=== PATIENT | male | born 1945 ===

== ENCOUNTER 2024-06-21 11:51 | Emergency (ER) | payer MEDICARE, OTHER, SELFPAY ==
[2024-06-21 11:58] VITALS: BP 129/84
[2024-06-21 12:01] VITALS: BP 129/84
[2024-06-21 12:44] VITALS: BMI 33.2
[2024-06-21 13:00] VITALS: BP 147/82
--- NOTE | 2024-06-21 13:03 | ED.GENMED ---
History of Present Illness
General
Chief Complaint: Male Genito-Urinary Symptoms
Source: patient
Time Seen by Provider: 06/21/24 12:09
History of Present Illness
History of Present Illness:
78yoM with a history of atrial fibrillation on Eliquis, coronary artery disease, hypertension, and hyperlipidemia presenting for evaluation of hematuria. Patient urinated this morning and noticed that the urine was red-tinged. He was able to go to
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 The color seemed to gradually improve throughout the urine stream. He denies any clots. He denies any dysuria or urinary retention. No abdominal
pain, flank pain, vomiting, fevers. Of note, patient had a nosebleed overnight while self-resolved.
Past History
Past History
ED Past Medical History: CAD, HTN, Hypercholesterolemia and NIDDM
ED Past Surgical History: Cardiac and Orthopedic
Social History
Tobacco: Non-smoker
Alcohol: Former
Drug: None
Personal: Single
Living: with family
Phy Exam
General Physical Exam
General Presentation: well appearing and no apparent distress
General age: appears stated age
General Skin: warm and dry
General Habitus: normal
General Mental: alert
General Hydration: appears well hydrated
ENT Exam
ENT Exam: normocephalic
Pulmonary Exam
Pulmonary Exam: no respiratory distress
Gastrointestinal Exam
Gastrointestinal Exam: non tender, soft and non distended
Genitourinary Exam Male
Exam Male: other (Urine is dark pink color. No clots visualized. )
Neurological Exam
Neurological Exam: alert
[place] Coma Scale
Eye Opening: Spontaneous
Verbal Response: Oriented
Motor Response: Obeys Commands
GCS Total Score: 15
Skin Exam
Skin Exam: normal color and warm/dry
Psychiatric Exam
Psychiatric Exam: normal mood/affect
Course
Orders/Labs/Results
Orders:
Orders
06/21/24 12:33
CT Abd/pelvis W Iv Cont Urgent
Comment:
Reason For Exam: Hematuria
06/21/24 13:03
Complete Blood Count/With Diff Urgent
Comprehensive Metabolic Panel Urgent
PTT Urgent
Prothrombin Time Urgent
06/21/24 13:13
Urinalysis Reflex To Culture Urgent
Date Specimen was Collected: 06/21/24
Time Specimen was Collected: 13:12
Urine Microscopic Reflex Cult Urgent
Urine Culture Urgent
CURRY Source: U
Specimen Description:
Date Specimen was Collected: 06/21/24
Time Specimen was Collected: 13:12
Abnormal Lab Results
06/21/24 06/21/24
13:03 13:13
RDW 15.0 H %
(11.5-14.5)
Absolute Monos (auto) 1.0 H 10^3/uL
(0.1-0.6)
Monocytes % 11.8 H %
(1.7-9.3)
PT 18.2 H Sec
(11.4-14.6)
APTT 40.8 H Sec
(23.4-35.0)
BUN 28 H mg/dl
(9-20)
Glucose 104 H mg/dl
(70-99)
Calcium 10.5 H mg/dl
(8.4-10.2)
Total Bilirubin 2.7 H mg/dl
(0.2-1.3)
Ur Occult Blood Reflex 4+ A
(Negative)
Urine Bilirubin 1+ A
(Negative)
Leukocyte Esterase Rfl Trace A
(Negative)
Urine RBC >100 A /HPF
(0-2)
Urine Albumin (Reflex) 1+ A
(Neg - Trace)
06/21/24 13:03
06/21/24 13:03
Vital Signs
Initial and Last Documented VS:
Initial Vital Signs
Temp Pulse BP
98.6 F 70 129/84
06/21/24 11:58 06/21/24 11:58 06/21/24 11:58
Last Documented Vital Signs
Temp Pulse Resp BP Pulse Ox
98.6 F 57 20 153/85 98
06/21/24 12:01 06/21/24 17:00 06/21/24 17:00 06/21/24 17:00 06/21/24 17:00
MDM/Problems Addressed
Differential Diagnosis Includes:
78yoM here with painless hematuria that began this morning. No associated urinary retention, abdominal pain, flank pain, fevers, vomiting. Currently on Eliquis for afib. VSS. He is well appearing in no distress. Urine sample is dark pink in color.
Exam is reassuring. Differential diagnosis includes but is not limited to: coagulopathy 2/2 Eliquis, BPH, UTI, malignancy, less likely kidney stone as he has no pain
Initial ED plan: Check CBC, CMP, coags, UA, and CT abdomen.
*Critical Care Note
Total Time (30-74mins, 75-104mins- exclusive of procedures): Not Applicable
Update Note
Update Note:
CT shows a 3.7mm distal L ureter. UA with 4+ blood without any overt signs of infection. Renal function stable. Patient remains pain free on reassessment. He is stable for discharge. Supportive care discussed including hydration, urine straining,
and Flomax. Advised f/u with urology. Strict ED return precautions discussed including severe pain and urinary retention. He expressed understanding and is agreeable to plan. He was discharged in stable condition.
ED Attending Note
-
Portions of this chart may have been created with voice recognition software.� Occasional wrong word or��sound alike� substitutions may have occurred due to the inherent limitations of voice recognition software.
Discharge Plan
Departure
Patient Disposition: Home (Routine Discharge)
Date of Disposition: 06/21/24
Time of Disposition: 16:58
Patient with high blood pressure during this ER visit?: No
Discharge Problem:
Calculus of distal left ureter, Gross hematuria
Instructions: Kidney stones in adults
Prescriptions:
New
tamsulosin [Flomax] 0.4 mg capsule
0.4 mg PO HS Qty: 7 0RF
No Action
losartan 50 MG tablet
100 mg PO DAILY
atorvastatin 40 MG tablet
40 mg PO QPM
benzonatate 200 MG capsule
200 mg PO BID
amlodipine 5 MG tablet
5 mg PO DAILY
metoprolol succinate [Toprol XL] 25 MG tablet extended release 24 hr
25 mg PO DAILY
escitalopram oxalate 10 MG tablet
10 mg PO DAILY
omega-3 acid ethyl esters 1 GM capsule
2 tablets PO BID
nitroglycerin 0.4 MG tablet, sublingual
0.4 mg sublingual [id number] PRN (Reason: chest pain)
clopidogrel 75 MG tablet
75 mg PO DAILY Qty: 90 3RF
apixaban [Eliquis] 5 MG tablet
5 mg PO BID Qty: 60 1RF
furosemide [Lasix] 20 MG tablet
20 mg PO DAILY Qty: 30 0RF
lorazepam [Ativan] 0.5 mg tablet
0.5 mg PO HS PRN (Reason: Sleep) Qty: 7 0RF
zolpidem [Ambien] 5 mg tablet
5 mg PO HS PRN (Reason: insomnia) Qty: 7 0RF
Referrals:
Sonido Gooden MD [Family Provider] -
Colten Daigle MD [Active] -
Activity Restrictions/Additional Instructions:
Strain your urine and take Flomax until stone has passed.
Drink plenty of fluids and take Tylenol as needed for pain.
Please follow-up with urology. Return to the ER with any worsening symptoms, severe pain, fevers, or inability to urinate.
Interventions
Interventions:
*Risk Screen - Suicide Last Done: 06/21/24 12:01
*General Assessment Last Done: 06/21/24 12:00
*Neglect/Abuse Screening Last Done: 06/21/24 12:01
ED- Fall Risk Assessment Last Done: 06/21/24 17:41
*ED COVID-19 Vaccine History Last Done: 06/21/24 12:01
*Nursing Disposition Last Done: 06/21/24 17:41
ED-Male Genitourinary Assessment Last Done: 06/21/24 12:00
Discharge Date and Time
Discharge Date/Time: 06/21/24 17:35
Print Language: YAKUT
[2024-06-21 13:22] LABS: % Basophils 0.7 % (0-2); % Eosinophils 0.9 % (0-6); % Immature Granulocytes 0.2 % (0-0.5); % Lymphocytes 24.7 % (20.5-51.1); % Monocytes 11.8 % (1.7-9.3); % Neutrophils 61.7 % (42.2-75.2); Absolute Basophils 0.1 10^3/uL (0-0.2); Absolute Eosinophils 0.1 10^3/uL (0-0.7); Absolute Lymphocytes 2.1 10^3/uL (1.2-3.4); Absolute Neutrophils 5.2 10^3/uL (1.4-6.5); Hematocrit 44.1 % (39.0-52.0); Hemoglobin 14.7 g/dL (13.0-18.0); Mean Corp Hgb Conc. 33.3 g/dL (33.0-37.0); Mean Corpuscular Hgb 27.2 pg (27.0-31.0); Mean Corpuscular Volume 81.7 fL (80.0-94.0); Mean Platelet Volume 9.1 fL (7.4-10.4); Nucleated Red Blood Cells % 0 % (-); Platelet Count 212 10^3/uL (130-400); White Blood Cell Count 8.5 10^3/uL (4.8-10.8)
[2024-06-21 13:28] LABS: INR 1.48; PT 18.2 Sec (11.4-14.6)
[2024-06-21 13:29] LABS: APTT 40.8 Sec (23.4-35.0)
[2024-06-21 13:33] LABS: ALT (SGPT) 26 U/L (0-50); AST (SGOT) 29 U/L (17-59); Albumin 4.7 g/dl (3.5-5.0); Alkaline Phosphatase 87 U/L (38-126); Blood Urea Nitrogen 28 mg/dl (9-20); Calcium 10.5 mg/dl (8.4-10.2); Carbon Dioxide 27 mmol/L (22-30); Chloride 103 mmol/L (98-107); Estimated Creatinine Clearance 79 ml/min; Glucose 104 mg/dl (70-99); Potassium 4.4 mmol/L (3.5-5.1); Sodium 140 mmol/L (135-145); Total Bilirubin 2.7 mg/dl (0.2-1.3); Total Protein 7.4 g/dl (6.3-8.2); eGFR > 60.00
[2024-06-21 13:36] LABS: Urine Albumin 1+ (Neg - Trace); Urine Bilirubin 1+ (Negative); Urine Character Slightly Cloudy (Clear); Urine Color Amber; Urine Glucose Negative (Negative); Urine Ketone Negative (Negative); Urine Leukocyte Trace (Negative); Urine Nitrite Negative (Negative); Urine Occult Blood 4+ (Negative); Urine Urobilinogen Negative (Neg - 1+)
[2024-06-21 14:13] LABS: Urine Red Blood Cell >100 /HPF (0-2)
[2024-06-21 17:00] VITALS: BP 153/85
== END 2024-06-21 17:35 | disposition home or self-care (01) ==
LOC: EMR 11:51
PROVIDERS: Physician Assistant; EMERGENCY PHYSICIAN Emergency Medicine; FAMILY PHYSICIAN Family Medicine
DX: N20.1 Calculus of ureter (principal); R31.0 Gross hematuria; I48.91 Unspecified atrial fibrillation; I25.10 Atherosclerotic heart disease of native coronary artery without angina pectoris; I10 Essential (primary) hypertension; E78.00 Pure hypercholesterolemia, unspecified; E11.9 Type 2 diabetes mellitus without complications; Z79.01 Long term (current) use of anticoagulants
CPT/HCPCS: 99284; 74177; 80053; 81003; 81015; 85025; 85610; 85730; 87086; Q9967

== ENCOUNTER 2024-08-28 09:50 | Emergency (ER) | payer MEDICARE, OTHER, SELFPAY ==
[2024-08-28 10:14] VITALS: BP 149/88
--- NOTE | 2024-08-28 11:07 | ED.GENMED ---
History of Present Illness
General
Chief Complaint: Cold/Flu/URI Symptoms
Source: patient
Exam Limitations: none
Time Seen by Provider: 08/28/24 10:59
Nursing documentation reviewed up to this point in time: agreed with
History of Present Illness
History of Present Illness:
This is a 78-year-old male with past medical history of A-fib on Eliquis, coronary artery disease, hypertension, hyperlipidemia, sleep apnea, presents emergency department today with concerns of shortness of breath and cough. He has had the
symptoms for the past week. He reports that he the symptoms have caused him not to sleep well at night. He states that he has had runny nose as well and he feels as though he has sinus congestion. He denies chest pain. He notes intermittent
wheezing. He has no history of COPD or asthma. He denies any recent sick contacts. He denies any syncopal episodes. He denies any increasing swelling in his legs or any recent weight gain. Patient did get the flu shot this past year. Patient
denies any trouble swallowing. Patient denies any abdominal pain, nausea, vomiting, diarrhea. Patient's sql tech is Dr. Hand with [facility].
Past History
Past History
ED Past Medical History: CAD, HTN, Hypercholesterolemia and NIDDM
ED Past Surgical History: Cardiac and Orthopedic
Social History
Tobacco: Non-smoker
Alcohol: Former
Drug: None
Personal: Single
Living: with family
Review of Systems
Review of Systems
All Other Systems: ROS reviewed and negative except as documented in HPI and ROS
Phy Exam
Physical Exam
Physical Exam:
General: Patient is well appearing and in no acute distress; non-toxic
Skin: Warm and dry, no rashes or lesions
Head: Normocephalic, atraumatic
Eyes: Sclera non-icteric. EOMs intact.
Throat: No pharyngeal erythema, uvula midline
Cardiac: Regular rate and rhythm, systolic murmur noted
Peripheral Vascular: No lower extremity swelling or edema
Pulm: Normal respiratory effort, occasional wheezing
Neuro: CN II-XII intact, no focal neurologic deficits.
Psychiatric: Appropriate mood and affect.
Course
Orders/Labs/Results
Orders:
Orders
08/28/24 11:24
IV Insert/Care/Rem.- Treatment PRN
08/28/24 11:25
Electrocardiogram (*1) Urgent
Reason for Study: Shortness of Breath
EKG- Treatment ONCE
CR Chest - 2 Views Urgent
Comment:
Reason For Exam: shortness of breath
08/28/24 12:06
COVID-19 Antigen Urgent
Source: Nasal Swab
Complete Blood Count/With Diff Urgent
Comprehensive Metabolic Panel Urgent
NT-proBNP Urgent
Influenza A+B Rapid Molecular Urgent
CURRY Source: Nasal Swab
Specimen Description:
Respiratory Syncytial Virus Urgent
CURRY Source: Nasal Swab
Specimen Description:
Date Specimen was Collected: 08/28/24
Time Specimen was Collected: 11:27
Abnormal Lab Results
08/28/24
12:06
MCV 79.5 L fL
(80.0-94.0)
RDW 14.9 H %
(11.5-14.5)
BUN 21 H mg/dl
(9-20)
Glucose 117 H mg/dl
(70-99)
Calcium 10.3 H mg/dl
(8.4-10.2)
Total Bilirubin 1.6 H mg/dl
(0.2-1.3)
SARS-CoV-2 Antigen Positive A
(Negative)
08/28/24 12:06
08/28/24 12:06
Vital Signs
Initial and Last Documented VS:
Initial Vital Signs
Temp Pulse Resp BP Pulse Ox
98.8 F 72 18 149/88 94
08/28/24 10:14 08/28/24 10:14 08/28/24 10:14 08/28/24 10:14 08/28/24 10:14
Last Documented Vital Signs
Temp Pulse Resp BP Pulse Ox
98.8 F 94 18 140/80 95
08/28/24 10:14 08/28/24 13:21 08/28/24 13:21 08/28/24 13:21 08/28/24 13:21
MDM/Problems Addressed
Differential Diagnosis Includes:
Differentials include pneumonia, influenza, COVID-19, upper respiratory, heart failure
MDM/Problems Addressed:
This is a 78-year-old male with past medical history of A-fib on Eliquis, sleep apnea, coronary artery disease presents emergency department today with concerns of increased cough and mucus, generalized fatigue trouble sleeping. Patient reports
that the symptoms have been going on for the past few days. On exam, he is not hypoxic he is afebrile, well-appearing in no acute distress. His lungs are clear to auscultation bilaterally. He has no pharyngeal edema or erythema. He has no
abdominal pain, no nausea or vomiting he tested positive for COVID-19. His x-ray shows no concurrent pneumonia. His EKG did show atrial fibrillation rate of 65 however patient is rate controlled on medication follows with cardiology and is on
Eliquis and he denies palpitations or lightheadedness at this time. Patient stable for discharge, discussed rest and staying well hydrated. Patient stable for discharge. Discussed return precautions.
Chronic conditions affecting care:
A-fib, coronary artery disease, hypertension
*Pulse Oximetry
Patient hypoxic: no
*EKG
Interpreted by ED Provider?: Yes
EKG Intrepretation Date: 08/28/24
Interpretation: abnormal
Comparison EKG: no changes
Heart Rate: 65
Rate: normal
Rhythm: a-fib
[place]: normal axis
Interval: normal interval
QRS Pattern: normal QRS
*Critical Care Note
Total Time (30-74mins, 75-104mins- exclusive of procedures): Not Applicable
Data Reviewed
Review of Other/Old Records Reveals: Records (Reviewed previous ER section documentation for 06/21/2024 patient seen for calculus of distal ureter, reviewed ER physician documentation from 01/08/2023 patient seen for worsening orthopnea unremarkable)
Source: patient and records
ED Attending Note
-
Portions of this chart may have been created with voice recognition software.� Occasional wrong word or��sound alike� substitutions may have occurred due to the inherent limitations of voice recognition software.
Discharge Plan
Departure
Patient Disposition: Home (Routine Discharge)
Date of Disposition: 08/28/24
Time of Disposition: 13:10
Patient with high blood pressure during this ER visit?: Yes
Condition: Good
Discharge Problem:
COVID-19
Instructions: COVID-19 - ED discharge instructions, BLOOD PRESSURE
Prescriptions:
No Action
losartan 50 MG tablet
100 mg PO DAILY
atorvastatin 40 MG tablet
40 mg PO QPM
benzonatate 200 MG capsule
200 mg PO BID
amlodipine 5 MG tablet
5 mg PO DAILY
metoprolol succinate [Toprol XL] 25 MG tablet extended release 24 hr
25 mg PO DAILY
escitalopram oxalate 10 MG tablet
10 mg PO DAILY
omega-3 acid ethyl esters 1 GM capsule
2 tablets PO BID
nitroglycerin 0.4 MG tablet, sublingual
0.4 mg sublingual [id number] PRN (Reason: chest pain)
clopidogrel 75 MG tablet
75 mg PO DAILY Qty: 90 3RF
apixaban [Eliquis] 5 MG tablet
5 mg PO BID Qty: 60 1RF
furosemide [Lasix] 20 MG tablet
20 mg PO DAILY Qty: 30 0RF
lorazepam [Ativan] 0.5 mg tablet
0.5 mg PO HS PRN (Reason: Sleep) Qty: 7 0RF
zolpidem [Ambien] 5 mg tablet
5 mg PO HS PRN (Reason: insomnia) Qty: 7 0RF
tamsulosin [Flomax] 0.4 mg capsule
0.4 mg PO HS Qty: 7 0RF
Referrals:
Sonido Gooden MD [Family Provider] -
Activity Restrictions/Additional Instructions:
Today you tested positive for COVID-19. Your chest x-ray did not show any evidence of associated pneumonia.
Please follow-up with your primary care provider in 1 to 2 weeks.
PLEASE RETURN TO EMERGENCY DEPARTMENT SHOULD YOU DEVELOP CHEST PAIN, ACUTE WORSENING OF YOUR SYMPTOMS, SHORTNESS OF BREATH, INTRACTABLE NAUSEA OR VOMITING, FEVERS, WEAKNESS IN ONE-SIDED BODY VERSUS OTHER, FAINTING SPELLS, COUGHING UP BLOOD, REDNESS
OR SWELLING IN YOUR LOWER EXTREMITIES, OR ANY OTHER SIGNS OR SYMPTOMS WORRISOME TO YOU.
Interventions
Interventions:
*Risk Screen - Suicide Last Done: 08/28/24 10:14
*General Assessment Last Done: 08/28/24 10:14
*Neglect/Abuse Screening Last Done: 08/28/24 10:14
ED- Fall Risk Assessment Last Done: 08/28/24 12:23
*Nursing Disposition Last Done: 08/28/24 13:25
ED- Pulmonary Assessment Last Done: 08/28/24 12:23
Discharge Date and Time
Discharge Date/Time: 08/28/24 13:26
Print Language: DANISH
[2024-08-28 12:05] VITALS: BMI 32.9
[2024-08-28 12:19] LABS: % Basophils 0.6 % (0-2); % Eosinophils 1.2 % (0-6); % Immature Granulocytes 0.1 % (0-0.5); % Monocytes 8.1 % (1.7-9.3); Absolute Eosinophils 0.1 10^3/uL (0-0.7); Absolute Lymphocytes 1.6 10^3/uL (1.2-3.4); Absolute Monocytes 0.6 10^3/uL (0.1-0.6); Absolute Neutrophils 4.5 10^3/uL (1.4-6.5); Hematocrit 40.8 % (39.0-52.0); Hemoglobin 13.9 g/dL (13.0-18.0); Mean Corp Hgb Conc. 34.1 g/dL (33.0-37.0); Mean Corpuscular Hgb 27.1 pg (27.0-31.0); Mean Corpuscular Volume 79.5 fL (80.0-94.0); Nucleated Red Blood Cells % 0 % (-); Platelet Count 181 10^3/uL (130-400); Red Blood Cell Count 5.13 10^6/uL (4.70-6.10); Red Cell Dist. Width 14.9 % (11.5-14.5); White Blood Cell Count 6.8 10^3/uL (4.8-10.8)
[2024-08-28 12:29] LABS: COVID-19 Antigen Positive (Negative)
[2024-08-28 12:33] LABS: ALT (SGPT) 25 U/L (0-50); AST (SGOT) 30 U/L (17-59); Albumin 4.4 g/dl (3.5-5.0); Alkaline Phosphatase 92 U/L (38-126); Blood Urea Nitrogen 21 mg/dl (9-20); Calcium 10.3 mg/dl (8.4-10.2); Carbon Dioxide 27 mmol/L (22-30); Chloride 101 mmol/L (98-107); Estimated Creatinine Clearance 108 ml/min; Glucose 117 mg/dl (70-99); Potassium 3.8 mmol/L (3.5-5.1); Sodium 137 mmol/L (135-145); Total Bilirubin 1.6 mg/dl (0.2-1.3); Total Protein 7.2 g/dl (6.3-8.2); eGFR > 60.00
[2024-08-28 12:41] LABS: NT-proBNP 856 pg/ml
[2024-08-28 13:21] VITALS: BP 140/80
== END 2024-08-28 13:26 | disposition home or self-care (01) ==
LOC: EMR 09:50
PROVIDERS: Physician Assistant; EMERGENCY PHYSICIAN Emergency Medicine; FAMILY PHYSICIAN Family Medicine
DX: U07.1 COVID-19 (principal); I25.10 Atherosclerotic heart disease of native coronary artery without angina pectoris; I48.91 Unspecified atrial fibrillation; I10 Essential (primary) hypertension; E78.00 Pure hypercholesterolemia, unspecified; G47.30 Sleep apnea, unspecified; E11.9 Type 2 diabetes mellitus without complications; Z79.01 Long term (current) use of anticoagulants
CPT/HCPCS: 99285; 71046; 80053; 83880; 85025; 87502; 87807; 87811; 93005

== ENCOUNTER 2025-06-26 14:07 | Inpatient (IN) | payer MEDICARE, OTHER, SELFPAY ==
[2025-06-25 20:28] VITALS: BP 160/89
[2025-06-25 20:42] VITALS: BP 157/92
[2025-06-25 20:49] VITALS: BMI 31.1
[2025-06-25 21:00] VITALS: BP 151/86
[2025-06-25 21:13] LABS: Hematocrit 34.7 % (39.0-52.0); Hemoglobin 10.2 g/dL (13.0-18.0); Mean Corp Hgb Conc. 29.4 g/dL (33.0-37.0); Mean Corpuscular Volume 72.0 fL (80.0-94.0); Nucleated Red Blood Cells % 0 % (-); Platelet Count 200 10^3/uL (130-400); Red Cell Dist. Width 19.5 % (11.5-14.5)
[2025-06-25 21:38] LABS: ALT (SGPT) 30 U/L (0-50); AST (SGOT) 23 U/L (17-59); Albumin 4.1 g/dl (3.5-5.0); Alkaline Phosphatase 75 U/L (38-126); Blood Urea Nitrogen 20 mg/dl (9-20); Calcium 10.4 mg/dl (8.4-10.2); Carbon Dioxide 28 mmol/L (22-30); Chloride 105 mmol/L (98-107); Estimated Creatinine Clearance 89 ml/min; Glucose 101 mg/dl (70-99); Potassium 3.8 mmol/L (3.5-5.1); Sodium 138 mmol/L (135-145); Total Protein 6.7 g/dl (6.3-8.2); eGFR > 60.00
[2025-06-25 21:46] LABS: Troponin I 0.045 ng/ml
[2025-06-25 22:00] VITALS: BP 173/112
--- NOTE | 2025-06-25 22:06 | ED.GENMED ---
History of Present Illness
General
Chief Complaint: Fall
Time Seen by Provider: 06/25/25 21:50
History of Present Illness
History of Present Illness:
Patient is a 71-year-old male with history of A-fib on Eliquis presenting to the emergency department after an episode of lightheadedness dizziness. Patient states that he was walking out of the house when he became lightheaded dizzy. He missed a
step and fell landing in a . He landed on his back. He did not lose consciousness. He is on Eliquis. Denies any pain from the fall. He denies any palpitations chest pain shortness of breath. He also notes he has been having difficulty
sleeping. He is on trazodone which has not been helping. At this time patient's only complaint is a lack of sleep
Past History
Past History
ED Past Medical History: CAD, HTN, Hypercholesterolemia and NIDDM
ED Past Surgical History: Cardiac and Orthopedic
Social History
Tobacco: Non-smoker
Alcohol: Former
Drug: None
Personal: Single
Living: with family
Phy Exam
Physical Exam
Physical Exam:
GENERAL: in no acute distress
HEENT: normocephalic, extraocular movements intact, moist oral mucosa
NECK: normal inspection
RESPIRATORY: no respiratory distress, clear to auscultation bilaterally
CARDIOVASCULAR: regular rate and rhythm
ABDOMEN/: soft, non-distended, non-tender to palpation, no rebound or guarding
EXTREMITIES: non-tender, no edema/swelling
NEUROLOGIC: awake and alert, moves all extremities
SKIN: warm
Course
Orders/Labs/Results
Orders:
Orders
06/25/25 20:45
EKG [Electrocardiogram (*1)] Urgent
Reason for Study: Atrial Fibrillation
EKG- Treatment ONCE
06/25/25 21:07
BNP [NT-proBNP] Urgent
Complete Blood Count/With Diff Urgent
Comprehensive Metabolic Panel Urgent
Troponin I Urgent
06/25/25 22:05
CT Head W/o Iv Contrast Urgent
Comment:
Reason For Exam: fall
EKG- Treatment ONCE
06/26/25 00:07
Electrocardiogram (*1) Urgent
Reason for Study: Chest Pain
Troponin I Urgent
Abnormal Lab Results
06/25/25
21:07
Hgb 10.2 L g/dL
(13.0-18.0)
Hct 34.7 L %
(39.0-52.0)
MCV 72.0 L fL
(80.0-94.0)
MCH 21.2 L pg
(27.0-31.0)
MCHC 29.4 L g/dL
(33.0-37.0)
RDW 19.5 H %
(11.5-14.5)
Absolute Monos (auto) 1.0 H 10^3/uL
(0.1-0.6)
Lymphocytes % 15.0 L %
(20.5-51.1)
Monocytes % 11.9 H %
(1.7-9.3)
Glucose 101 H mg/dl
(70-99)
Calcium 10.4 H mg/dl
(8.4-10.2)
Total Bilirubin 3.4 H mg/dl
(0.2-1.3)
Troponin I 0.045 H* ng/ml
06/25/25 21:07
06/25/25 21:07
Vital Signs
Initial and Last Documented VS:
Initial Vital Signs
Temp Pulse Resp BP Pulse Ox
97.9 F 62 18 160/89 94
06/25/25 20:28 06/25/25 20:28 06/25/25 20:28 06/25/25 20:28 06/25/25 20:28
Last Documented Vital Signs
Temp Pulse Resp BP Pulse Ox
97.9 F 67 18 151/86 96
06/25/25 20:28 06/25/25 21:45 06/25/25 21:45 06/25/25 21:00 06/25/25 21:45
MDM/Problems Addressed
Differential Diagnosis Includes:
Patient is a 79-year-old man presenting to the emergency department after a fall after being lightheaded dizzy. On arrival vitals unremarkable exam is reassuring. Differential consists of cardiac arrhythmia versus metabolic derangement versus
traumatic injury given the fall on thinners. Blood work obtained prior to evaluation does show elevated troponin as well as mildly elevated BNP. EKG per my interpretation consistent with atrial fibrillation. Patient is chest pain-free and does
not present as a story consistent with acute coronary syndrome so we will hold off on heparin and obtain delta troponin. Given the fall on thinners we will obtain CT scan of the head. Blood work otherwise is reassuring. Discussed with hospitalist
who accepted patient to their service.
*Pulse Oximetry
SaO2: 96
Oxygen Mode of Delivery: Room air
Patient hypoxic: no
*Critical Care Note
Total Time (30-74mins, 75-104mins- exclusive of procedures): Not Applicable
ED Attending Note
-
Portions of this chart may have been created with voice recognition software.� Occasional wrong word or��sound alike� substitutions may have occurred due to the inherent limitations of voice recognition software.
Discharge Plan
Departure
Patient Disposition: Admit
Date of Disposition: 06/25/25
Time of Disposition: 22:12
Presentation/result/management discussed w/ accepting MD/DO: Hospitalist
Discharge Problem:
Lightheadedness
Prescriptions:
No Action
losartan 50 MG tablet
100 mg PO DAILY
atorvastatin 40 MG tablet
40 mg PO QPM
benzonatate 200 MG capsule
200 mg PO BID
amlodipine 5 MG tablet
5 mg PO DAILY
metoprolol succinate [Toprol XL] 25 MG tablet extended release 24 hr
25 mg PO DAILY
escitalopram oxalate 10 MG tablet
10 mg PO DAILY
omega-3 acid ethyl esters 1 GM capsule
2 tablets PO BID
nitroglycerin 0.4 MG tablet, sublingual
0.4 mg sublingual [id number] PRN (Reason: chest pain)
clopidogrel 75 MG tablet
75 mg PO DAILY Qty: 90 3RF
apixaban [Eliquis] 5 MG tablet
5 mg PO BID Qty: 60 1RF
furosemide [Lasix] 20 MG tablet
20 mg PO DAILY Qty: 30 0RF
lorazepam [Ativan] 0.5 mg tablet
0.5 mg PO HS PRN (Reason: Sleep) Qty: 7 0RF
zolpidem [Ambien] 5 mg tablet
5 mg PO HS PRN (Reason: insomnia) Qty: 7 0RF
tamsulosin [Flomax] 0.4 mg capsule
0.4 mg PO HS Qty: 7 0RF
Interventions
Interventions:
*Risk Screen - Suicide Last Done: 06/25/25 20:31
*General Assessment Last Done: 06/25/25 20:49
*Neglect/Abuse Screening Last Done: 06/25/25 20:31
*ED- Fall Risk Assessment Last Done: 06/25/25 20:49
*ED COVID-19 Vaccine History Last Done: 06/25/25 20:49
*ED Influenza Vaccine History Last Done: 06/25/25 20:49
ED-Suicide Risk Assessment Last Done: 06/25/25 21:42
ED-Musculoskeletal Assessment Last Done: 06/25/25 20:53
ED- Neurological Assessment Last Done: 06/25/25 20:53
ED-Psychological Assessment Last Done: 06/25/25 20:53
ED-Skin Assessment Last Done: 06/25/25 20:53
Discharge Date and Time
Print Language: MONGOLIAN
--- NOTE | 2025-06-25 22:28 | HPS.HSE ---
Family Physician
-
Family Physician:
Chief Complaint
-
fall
History of Present Illness
Patient is a 79-year-old male with past medical history significant for essential hypertension, hyperlipidemia, coronary artery disease, congestive heart failure, paroxysmal atrial fibrillation and obstructive sleep apnea who presented to [facility] ED
for evaluation post fall. Patient reports recent history of insomnia and started on trazodone. He reports feeling lightheaded this afternoon, in which he believes comes from lack of sleep, and fell into a nearby . Patient denies LOC or head
strike. Patient and daughter at bedside who assisted with HPI. Patient was leaving [place] house follow the [employer] game when he felt weak and lightheaded and fell into . He stated that he has had increased weakness with lack of sleep. He is
currently attempting to make appointment to obtain over night sleep study in lab and feels [place] could be contributing to lack of sleep. Daughter reports that patient lost his spouse (her mom) a few years back and she has noticed some nightly anxiety
since then and believes this could be contributing to lack of sleep as well. Patient was recently started on trazodone and he reports it is ineffective. Daughter also notes that patient had a fall at her home January 30, 2025, where patient had brain
bleed requiring craniotomy and she feels he has been declining since then. Patient reports he knows he has a-fib but unaware if he is in it all the time. Denies any recent illness, fever, chills, cough, shortness of breath, chest pain, palpitations,
nausea, vomiting, constipation, diarrhea or urinary symptoms.
Medical History
Past Medical History
Past Medical History: Reports Other
Additional Past Medical History:
essential hypertension
hyperlipidemia
coronary artery disease
congestive heart failure
paroxysmal atrial fibrillation
obstructive sleep apnea
iron deficiency anemia
Hx brain bleed with craniotomy in January 2025
Past Surgical History: Reports Other
Additional Past Surgical History:
cardiac catheterization with PCI x3
craniotomy January 2025
Social History
Tobacco: Non-smoker
Alcohol: None
Drug: None
Personal:
Living: With Family
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
Family History
Family History: Other (Mother: CAD; Father: CAD )
Allergies / Home Medications
Allergies reflects when Allergies were last updated in [employer].
Home Medications with original date entered in [employer]
Allergy/Medication List:
Allergies
Allergy/AdvReac Type Severity Reaction Status Date / Time
No Known Allergies Allergy Verified 06/25/25 20:32
Home Medications
atorvastatin 40 mg tablet 40 mg PO QPM 09/02/19
clopidogrel 75 mg tablet 75 mg PO DAILY #90 tabs 09/02/19
escitalopram oxalate 10 mg tablet 10 mg PO DAILY 09/02/19
losartan 50 mg tablet 100 mg PO DAILY 09/02/19
metoprolol succinate 25 mg tablet,extended release 24 hr (Toprol XL) 25 mg PO DAILY 09/02/19
nitroglycerin 0.4 mg sublingual tablet 0.4 mg sublingual [id number] PRN chest pain 09/02/19
omega-3 acid ethyl esters 1 gram capsule 2 tablets PO BID 09/02/19
apixaban 5 mg tablet (Eliquis) 5 mg PO BID #60 tabs 02/26/20
furosemide 20 mg tablet (Lasix) 20 mg PO DAILY #30 tabs 02/26/20
ezetimibe 10 mg tablet 10 mg PO DAILY 06/25/25
ferrous sulfate 325 mg (65 mg iron) tablet 325 mg PO DAILY 06/25/25
trazodone 50 mg tablet 75 mg PO HS 06/25/25
Review of Systems
-
History Source: Patient
Constitutional: Reports Sleep Disturbance (inability to sleep ); Denies Fever or Chills
EENT: Denies Sore Throat
Respiratory: Denies Cough, Hemoptysis or Trouble Breathing
Cardiac: Denies Chest Pain, Diaphoresis, Palpitations or Syncope
Abdomen/GI: Denies Abdominal Pain, Nausea, Vomiting or Diarrhea
: Denies Dysuria, Frequency or Urgency
Musculoskeletal: Denies Joint Pain
Skin: Denies Rash
Neurological: Reports Weakness; Denies Dizzy, Headache or Numbness
Endocrine: Denies Polyuria or Polydipsia
Physical Exam
Vital Signs
Vital Signs
Temp Pulse Resp BP Pulse Ox
97.9 F 67 18 151/86 96
06/25/25 20:28 06/25/25 21:45 06/25/25 21:45 06/25/25 21:00 06/25/25 22:11
Physical Exam
General: Well Developed, Well Nourished, No Apparent Distress, Comfortable, Conversant and Obese
HEENT: NormoCephalic, Moist mucous membranes, PERRLA, Nose Appears Normal and Ears Appear Normal
Respiratory: Clear and Non Labored Respirations; No Wheezes, Rales or Rhonchi
Cardiac: Irregular Rhythm and Murmur; No Rub, Gallop or Peripheral Edema
GI: Soft, Non Tender, Non Distended and Normal Bowel Sounds
Musculoskeletal: No Clubbing, No Cyanosis and No Edema
Skin: Warm and IV/Catheter Site
Neuro: Awake and AO x 3
Psych: Calm
Laboratory Results
-
06/25/25 21:07
06/25/25 21:07
Laboratory Results
Total Bilirubin 3.4 mg/dl (0.2-1.3) H 06/25/25 21:07
AST 23 U/L (17-59) 06/25/25 21:07
ALT 30 U/L (0-50) 06/25/25 21:07
Alkaline Phosphatase 75 U/L (38-126) 06/25/25 21:07
Troponin I 0.045 ng/ml H* 06/25/25 21:07
Data Reviewed
-
Diagnostic Radiology: Report Reviewed by me (CXR:No acute disease of the chest. Mild coronary. Stable)
Medical Tests (Nuc Med, Echo, EKG etc): Report Reviewed by me (EKG: ATRIAL FIBRILLATION ST and T WAVE ABNORMALITY, CONSIDER INFERIOR ISCHEMIA)
Lab Data: Labs Reviewed by me (hgb 10.2, hct 34.7, tot bili 3.4, trop 0.045, pBNP 1969)
Impression/Plan
-
IMPRESSION/PLAN:
#fall 2/2 ambulatory dysfunction vs. arrhythmia vs. syncopal episode
fall at home this evening, fallJanuary 30, 2025 with bleed requiring craniotomy, difficulty sleeping recent trazodone ordered and ineffective, weakness from lack of sleep per patient
tot bili 3.4
EKG: ATRIAL FIBRILLATION
ST and T WAVE ABNORMALITY, CONSIDER INFERIOR ISCHEMIA
CXR: No acute disease of the chest.
Mild coronary. Stable
Head CT: Left frontal parietal convexity extra-axial collection measuring up to 3mm, may represent acute subdural. No significant line shift.
- Admit to telemetry
- Consult Cardiology (friends with Faiza Knowles [employer] @ [facility])
- Consult Neurosurgery
- repeat head CT in 4 hours per Neurosurgery to assess for changes (to determine if findings are acute vs. post operative changes)
- orthostatic VS
- Consult PT
#paroxysmal atrial fibrillation
EKG: ATRIAL FIBRILLATION
ST and T WAVE ABNORMALITY, CONSIDER INFERIOR ISCHEMIA
- continue metoprolol
- Hold Eliquis
#coronary artery disease
s/p multiple stents
trop 0.045
denies chest pain
- continue clopidogrel
- continue PRN nitro
- trend troponin
#congestive heart failure
pBNP 1969
- daily weights
- I & Os
- continue furosemide
#essential hypertension
- continue losartan
#hyperlipidemia
- continue atorvastatin and ezetimibe
#iron deficiency anemia
hgb 10.2, hct 34.7
- continue ferrous sulfate
#Hx brain bleed with craniotomy in January 2025
#obstructive sleep apnea
Code status: full code
DVT prophylaxis: SCDs
--- NOTE | 2025-06-25 22:33 | W.PN.UPDATE ---
Update Note
Progress Note Update
Patient seen in conjunction with nurse practitioner. I agree with the findings on history and physical. I concur with assessment and plan unless otherwise stated.
Briefly, this is a 79-year-old male with past medical history significant for CAD status post PCI LAD and RCA x 3, hypertension, hyperlipidemia, [id number] diabetes, atrial fibrillation on anticoagulation, recent left-sided intracranial
hemorrhage status post surgery, presenting to the emergency department with lightheadedness and a fall.
Patient reported that recently has been having insomnia. He has been started on trazodone 75 mg at bedtime which has not improved his insomnia and has resulted in daytime sleepiness and weakness as well as worsening fatigue. He is pending an
outpatient sleep study in about 1 week. He reported that he was sitting for about 3 hours watching football game. Afterwards he stood up to walk up a flight of stairs and then attempted to walk out the door when he felt lightheaded and tripped on
a small raised block fallen into the shrub. He denied head strike. He denied any palpitations. He denied feeling lightheaded prior to the fall. He denies any nausea or vomiting. Denies have any chest pain or shortness of breath.
Patient reported that he had a fall and a head injury in January resulting in intracranial hemorrhage for which he was treated at [facility]. He is status post craniotomy. He has been placed back on anticoagulation since.
In the emergency department he was afebrile, blood pressure was 150/86 with a pulse of 60. He was satting 96% on room air. ECG was atrial fibrillation rate controlled at 69 with T wave inversions in the inferior leads. Troponin was elevated at
0.045. His BNP is elevated at 1900. Bilirubin was also at 3.4. His CBC is mostly stable although hemoglobin has trended down to 10.2 from her prior baseline of 12. Electrolytes BUN and creatinine were all in normal range. CT of the head showed
subtle left frontal parietal convexity meeting of the treatment is week needed present acute subdural. No significant laxity. No herniation hydrocephalus. Moderate periventricular hypodensities.
Assessment and plan
Fall -suspect likely mechanical in the setting of weakness from his insomnia but cannot rule out presyncopal event. No obvious syncope. Cannot rule out an arrhythmic event either.
� Admit to telemetry observation
� Given the CT significant finding, discussed with neurosurgery and consulted them, plan is to repeat CT scan in 4 hours from the first, most likely for surgical changes.
� Holding anticoagulation for now
� Serial neurological exam
� Study for signs
� PT consult
Elevated troponin -troponin 0.045. No chest pain. Denies palpitations. ECG icurrently in rate controlled atrial fibrillation at rate of 69. Dynamic T wave inversions in the inferior leads but not associated with any symptoms. And anticoagulated
on apixaban.
� Monitor on telemetry
� Trend troponin
� Echocardiogram given syncopal episode
� Cardiology consult
Insomnia -patient with severe insomnia and tried trazodone which resulted in daytime sleepiness and weakness and fatigue.
� Hold trazodone for now
� Will hold sedatives pending repeat CT scan, if negative we can start patient on zolpidem which has worked in the past.
Hypertension
� Orthostatic vital signs, continue losartan and metoprolol A-fib not metastatic
CAD
� Continue Plavix and apixaban if CT scan normal
� Continue statin and ezetimibe
DVT prophylaxis�SCDs
CODE STATUS�full code
[2025-06-25 23:50] VITALS: BP 155/103
[2025-06-26] VITALS (12 sets, daily range): BP systolic 123–190; BP diastolic 75–114; PULSE 87; O2SAT 98; BMI 31.1
[2025-06-26 00:59] LABS: Troponin I 0.052 ng/ml
[2025-06-26] MEDS: MELATONIN 3 MG PO ×2 (04:49→21:37)
[2025-06-26 05:39] LABS: Troponin I 0.051 ng/ml
[2025-06-26 05:45] LABS: HDL Cholesterol 34 mg/dl; LDL Cholesterol, Calculated 34 mg/dl; Very Low Density Lipoprotein 8 mg/dl (0-30)
--- NOTE | 2025-06-26 08:11 | CON.CAR ---
Addendum entered and electronically signed by Francisco J Bay MD 06/26/25 12:15:
Pls call with questions
Addendum entered and electronically signed by Francisco J Bay MD 06/26/25 11:18:
I saw and evaluated the patient, and I provided the substantive portion of the medical decision making.
I reviewed and agree with the note by Ms Herrera and it accurately reflects our care.
I personally performed the medical decision making of the this encounter and my assessment and plan is below:
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
that he tripped and fell on a stair last night.
Likely permanent AF
- Resume Eliquis when OK by Nerosurgery
- Rates are controlled
Insomnia
- main complaint
- per primary
Original Note:
Consultation
Consultation Request
Date/Time Consultation Requested: 06/26/25 0405
Date/Time Consultation Performed: 06/26/25 0800
Requesting Provider: Agata Cobian NP
Performing Provider: Rachelle MARX for Dr. Bay
Reason for Consultation: AFIB
Medical History
-
Chief Complaint: fall
History of Present Illness:
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
that he tripped and fell on a stair last night. He felt into the mulch and crawled and got help. He is not sure what he hit on his body, but denies dizziness or LOC. Head CT showed SDH (unclear chronicity) and was stable on repeat CT scan. He denies
any CP or syncope. His main complaint is that he has had insomnia. His breathing has been 'horrible' over the past few months, which he blames on being so tired from his insomnia.
Past Medical History
Past Medical History: Arrhythmias, CAD, HTN, Hypercholesterolemia and NIDDM
Social History
Tobacco: Non-Smoker
Family History
Family History: Reviewed & Not Pertinent
Allergies / Home Medications
Allergy/AdvReac Type Severity Reaction Status Date / Time
No Known Allergies Allergy Verified 06/25/25 20:32
�Medication �Instructions �Recorded �Confirmed �Type
atorvastatin 40 mg tablet 40 mg PO QPM 09/02/19 06/25/25 History
clopidogrel 75 mg tablet 75 mg PO DAILY #90 tabs 09/02/19 06/25/25 Rx
escitalopram oxalate 10 mg tablet 10 mg PO DAILY 09/02/19 06/25/25 History
losartan 50 mg tablet 100 mg PO DAILY 09/02/19 06/25/25 History
metoprolol succinate 25 mg 25 mg PO DAILY 09/02/19 06/25/25 History
tablet,extended release 24 hr
(Toprol XL)
nitroglycerin 0.4 mg sublingual 0.4 mg sublingual [id number] PRN 09/02/19 06/25/25 History
tablet chest pain
omega-3 acid ethyl esters 1 gram 2 tablets PO BID 09/02/19 06/25/25 History
capsule
apixaban 5 mg tablet (Eliquis) 5 mg PO BID #60 tabs 02/26/20 06/25/25 Rx
furosemide 20 mg tablet (Lasix) 20 mg PO DAILY #30 tabs 02/26/20 06/25/25 Rx
ezetimibe 10 mg tablet 10 mg PO DAILY 06/25/25 06/25/25 History
ferrous sulfate 325 mg (65 mg 325 mg PO DAILY 06/25/25 06/25/25 History
iron) tablet
trazodone 50 mg tablet 75 mg PO HS 06/25/25 06/25/25 History
Review of Systems
-
History Source: Patient
All other systems: Negative unless noted
Constitutional: Fatigue and Sleep Disturbance
Respiratory: Trouble Breathing
Physical Exam
Vital Signs
Temp Pulse Resp BP Pulse Ox
98.3 F 84 20 163/89 94
06/26/25 04:35 06/26/25 05:04 06/26/25 04:35 06/26/25 05:04 06/26/25 05:11
Lab Results
06/25/25 21:07
06/25/25 21:07
Troponin I 0.051 ng/ml H* 06/26/25 04:50
Vbv-H-Nwontpgwwxu Pept 1970 pg/ml 06/25/25 21:07
Physical Exam
General: Well Developed
HEENT: Normocephalic and Anicteric
Respiratory: Clear and Non Labored Respirations
Cardiac: Irregular Rhythm and Murmur (II/ systolic)
Musculoskeletal: No Edema
Skin: Warm and Dry
Neuro: AO x 3
Impression / Plan
-
Fall:
-he reports he tripped and is clear with me that he did not pass out or have dizziness, but has been so tired (from insomnia) and thinks that may have contributed
-SDH is noted on head CT with unclear chronicity- neurosurgery is consulted and Eliquis is held for now
Insomnia:
-his biggest concern
-management per primary
SOB:
-BNP elevated, and hx chronic CHF per chart (details unknown) on lasix, but doesn't look obviously volume overloaded to assessment, denies hx lung disease- home lasix continued
-check echo and CXR
AFIB: suspect permanent
-rate-controlled; continue metoprolol and follow telemetry
-Eliquis held as above- resume when safe per CTS; [id number] score is 6 for age, CHF, CAD, HTN, DM
HTN:
-quite elevated, but just received his meds, so reassess after meds to see if adjustments are needed
Abnormal troponin: 0.052
-suspect acute, non-ischemic myocardial injury - in setting of significant HTN
-denies CP
-checking echo
CAD with hx stenting:
-last 2019 LAD and RCA
-on Plavix, statin, BB
-denies any CP
Anemia:
-monitor and w/u per primary
Data Reviewed
-
EKG: Tracing Personally Visualized and interpreted (AFIB 67 BPM, ST and T abnormality)
Radiology: Other (CXR ordered)
CT Scan: Report Reviewed by me (Head: There is a stable 3 mm left frontoparietal subdural hematoma without significant mass effect. There is a 1.6 cm lucent, expansile lesion within the left maxilla which extends slightly into the inferior aspect
of the maxillary sinus. )
Medical Tests (Nuc Med, Echo etc): Other (echo ordered)
Labs: Labs Reviewed by me
--- NOTE | 2025-06-26 08:20 | W.PN.HOSP.TC ---
Today's Communication/Plan
-
IV Lasix as per Cardio
Trazodone and Melatonin HS
PT/OT
resume home Eliquis
Assessment / Plan
Assessment / Plan
Physical Exam
General: No acute distress, appears comfortable at this time.
HEENT: NormoCephalic, Moist mucous membranes, PERRLA
Respiratory: Clear and Non Labored Respirations; No Wheezes, Rales or Rhonchi
Cardiac: Irregular Irregular Rhythm and Murmur; No Rub, Gallop or Peripheral Edema
GI: Soft, Non Tender, Non Distended and Normal Bowel Sounds
Musculoskeletal: No Clubbing, No Cyanosis and No Edema
Skin: Warm
Neuro: AOx3 conversant coherent
Psych: Calm
79M hypertension, hyperlipidemia, coronary artery disease, congestive heart failure, paroxysmal atrial fibrillation and obstructive sleep apnea presented for evaluation fall with associate poor sleep. Pt also has hx fall January 30, 2025 resulting in
brain bleed requiring craniotomy.
#fall 2/2 ambulatory dysfunction vs. arrhythmia vs. syncopal episode
#possible HF exacerbation
fall at home this evening, fallJanuary 30, 2025 with bleed requiring craniotomy, difficulty sleeping recent trazodone ordered and ineffective, weakness from lack of sleep per patient
tot bili 3.[address]: Left frontal parietal convexity extra-axial collection measuring up to 3mm, may represent acute subdural. No significant line shift.
- Admit to telemetry
- Consult Neurosurgery appreciated ok to resume home Eliquis
- repeat head CT noted stable
- orthostatic VS
- Consult PT
-cont home trazodone 75 mg HS, Melatonin 3mg HS added
-ECHO appreciated EF 72%, basal inferior hypokinesis, severe MR, severe Tricuspid regurgitation
#paroxysmal atrial fibrillation
- continue metoprolol
- Eliquis resumed as above
#coronary artery disease
s/p multiple stents
trop 0.045
denies chest pain
- continue clopidogrel
- continue PRN nitro
- trend troponin
#congestive heart failure
CXR: Cardiomegaly with findings suggesting mild interstitial pulmonary edema with small bilateral pleural effusions.
pBNP 1970
- daily weights
- I & Os
- Consult Cardiology appreciated IV lasix 40 mg BID
#essential hypertension
- continue losartan
#hyperlipidemia
- continue atorvastatin and ezetimibe
#iron deficiency anemia
- continue ferrous sulfate
#obstructive sleep apnea
Code status: full code
DVT prophylaxis: SCDs
I spent a total of 40 minutes with the patient or on the floor. More than 50% of this time involved counseling and coordination of care.
Anticipated Discharge: 24 - 48 hours
Subjective/Interval History
-
Date of Service: June 26, 2025
Seen and examined at bedside in no acute distress resting comfortably in bed. Primarily concerned with poor sleep. No sob at rest. Stable respiratory status on room air.
Objective Data
-
Labs:
Laboratory Results
06/25/25
21:07
WBC 8.0
Hgb 10.2 L
Hct 34.7 L
Plt Count 200
Sodium 138
Potassium 3.8
Chloride 105
Carbon Dioxide 28
BUN 20
Creatinine 0.9
Glucose 101 H
Calcium 10.4 H
Total Bilirubin 3.4 H
AST 23
ALT 30
Alkaline Phosphatase 75
Vital Signs:
Vital Signs
Temp Pulse Resp BP Pulse Ox
98.3 F 84 20 163/89 94
06/26/25 04:35 06/26/25 05:04 06/26/25 04:35 06/26/25 05:04 06/26/25 05:11
I&O
11/23/25 11/24/25 11/25/25
06:59 06:59 06:59
Output Total 300 / 300
Balance -300 / -300
[2025-06-26] MEDS: ZETIA 10 MG PO (08:43)
[2025-06-26] MEDS: TOPROL XL 25 MG PO (08:43)
[2025-06-26] MEDS: LASIX 20 MG PO ×2 (08:43→09:28)
[2025-06-26] MEDS: LEXAPRO 10 MG PO (08:43)
[2025-06-26] MEDS: COZAAR 100 MG PO (08:43)
[2025-06-26] MEDS: PLAVIX 75 MG PO (08:43)
[2025-06-26] MEDS: DESENEX/MITRAZOL/ZEASORB 1 APPLIC TOPICAL ×2 (08:43→19:49)
[2025-06-26] MEDS: FEOSOL 325 MG PO (08:43)
[2025-06-26 09:46] LABS: Glycohemoglobin (HgbA1c) 5.4 % (4.0-5.9)
--- NOTE | 2025-06-26 12:31 | W.PN.UPDATE ---
Update Note
Progress Note Update
CXR reviewed: Cardiomegaly with findings suggesting mild interstitial pulmonary edema with small bilateral pleural effusions. Will give dose of IV lasix.
[2025-06-26] MEDS: LASIX 40 MG IV (13:15)
[2025-06-26] MEDS: KCL 20 MEQ PO (13:15)
--- NOTE | 2025-06-26 17:24 | CM ---
IA completed. Pt is independent with ADLs and IADLs. Lives in a 2 story home with family with 2 steps at the entrance to the home and 13 steps inside the home. there is an apt in the basement. Pt denies having difficulty with stairs despite
describing his R knee as his bad knee. NO hx of SNF or home O2. DME: [employer] in the [place]. No insecurities identified. Confirmed PCP,, Rx, insurance and drug coverage
PCP: Landen Iglesias
Rx: [facility]/ [facility]
Hx of VN with [facility]
Is working with his doctor on a sleep apnea workup
Plan: TBD
[2025-06-26] MEDS: LIPITOR 40 MG PO (17:35)
--- NOTE | 2025-06-26 17:48 | W.PN.UPDATE ---
Update Note
Progress Note Update
CT of the head performed 11 PM 06/25/2025, as well as repeat CT performed on 06/26/2025 at 3 AM was reviewed. There is dural thickening under the craniotomy flap suggestive of full surgical changes/epidural thickening. No obvious evidence of monika
subdural hematoma seen. Also confirmed that the area of reported 'subdural hematoma' is indeed what was reported under the craniotomy flap, per Dr. Edison Gonzalez, radiology.
No neurosurgical intervention indicated. Patient can continue prehospitalization medications.
[2025-06-26] MEDS: ELIQUIS 5 MG PO (19:50)
[2025-06-26] MEDS: DESYREL 75 MG PO (21:36)
[2025-06-27] VITALS (8 sets, daily range): BP systolic 130–182; BP diastolic 65–98; PULSE 76–90; BMI 30.8
--- NOTE | 2025-06-27 00:49 | PTCARENOTE ---
Pt. on telemetry, HR alarming for rates dropping to 38-39 not sustaining then back up to 50s-60s. Chart reviewed, history of sleep apnea noted. FRANCISCO J Meléndez notified. Patient states that he does not wear a CPAP at home. New order for O2 at HS.
O2 2L via NC placed. VSS. Pt. resting comfortably in bed. Call arvizu within reach. Plan of care ongoing.
--- NOTE | 2025-06-27 07:43 | W.PN.HOSP.TC ---
Today's Communication/Plan
-
see a/p
Assessment / Plan
Assessment / Plan
Physical Exam
General: No acute distress, appears comfortable at this time.
HEENT: NormoCephalic, Moist mucous membranes, PERRLA
Respiratory: Clear and Non Labored Respirations; No Wheezes, Rales or Rhonchi
Cardiac: Irregular Irregular Rhythm and Murmur; No Rub, Gallop or Peripheral Edema
GI: Soft, Non Tender, Non Distended and Normal Bowel Sounds
Musculoskeletal: No Clubbing, No Cyanosis and No Edema
Skin: Warm
Neuro: AOx3 conversant coherent
Psych: Calm
79M hypertension, hyperlipidemia, coronary artery disease, congestive heart failure, paroxysmal atrial fibrillation and obstructive sleep apnea presented for evaluation fall with associate poor sleep. Pt also has hx fall January 30, 2025 resulting in
brain bleed requiring craniotomy.
#fall 2/2 ambulatory dysfunction vs. arrhythmia vs. syncopal episode
#possible HF exacerbation
fall at home this evening, fall January 30, 2025 with bleed requiring craniotomy, difficulty sleeping recent trazodone ordered and ineffective, weakness from lack of sleep per patient
tot bili 3.[address]: Left frontal parietal convexity extra-axial collection measuring up to 3mm, may represent acute subdural. No significant line shift.
- Admit to telemetry
- Consult Neurosurgery appreciated ok to resume home Eliquis
- repeat head CT noted stable
- orthostatic VS
- Consult PT/OT appreciated HH
-cont home trazodone 75 mg HS, Melatonin 3mg HS added
-ECHO appreciated EF 72%, basal inferior hypokinesis, severe MR, severe Tricuspid regurgitation
#Permanent atrial fibrillation
- continue metoprolol
- Eliquis resumed as above
#coronary artery disease
s/p multiple stents
trop 0.045
denies chest pain
- continue clopidogrel
- continue PRN nitro
- trend troponin
#congestive heart failure
CXR: Cardiomegaly with findings suggesting mild interstitial pulmonary edema with small bilateral pleural effusions.
pBNP 1970
- daily weights
- I & Os
- Consult Cardiology appreciated IV lasix 40 mg BID, Farxiga and Spironolactone added
#essential hypertension
- continue losartan
#hyperlipidemia
- continue atorvastatin and ezetimibe
#iron deficiency anemia
- continue ferrous sulfate
#obstructive sleep apnea
#Bradycardia to 30s overnight improved with nasal cannula supplementation
check nocturnal saturation
Code status: full code
DVT prophylaxis: SCDs
I spent a total of 40 minutes with the patient or on the floor. More than 50% of this time involved counseling and coordination of care.
Anticipated Discharge: 24 - 48 hours
Subjective/Interval History
-
Date of Service: June 27, 2025
overnight events noted, bradycardia to 30s improved with nasal cannula supplementation. Patient otherwise reports sleeping well for the first time in weeks. Overall reports significant improvement in overall symptoms.
Objective Data
-
Labs:
Laboratory Results
06/27/25
07:41
WBC Pending
Hgb Pending
Hct Pending
Plt Count Pending
Sodium Pending
Potassium Pending
Chloride Pending
Carbon Dioxide Pending
BUN Pending
Creatinine Pending
Glucose Pending
Calcium Pending
Vital Signs:
Vital Signs
Temp Pulse Resp BP Pulse Ox
97.6 F 79 22 159/94 98
06/27/25 03:55 06/27/25 03:55 06/27/25 03:55 06/27/25 03:55 06/27/25 03:55
I&O
06/26/25 06/27/25 06/28/25
06:59 06:59 06:59
Intake Total 900 / 900
Output Total 300 / 300 1450 / 1450
Balance -300 / -300 -550 / -550
[2025-06-27 08:00] LABS: Hematocrit 33.3 % (39.0-52.0); Hemoglobin 9.8 g/dL (13.0-18.0); Mean Corp Hgb Conc. 29.4 g/dL (33.0-37.0); Mean Corpuscular Volume 70.7 fL (80.0-94.0); Platelet Count 199 10^3/uL (130-400); Red Cell Dist. Width 19.6 % (11.5-14.5)
[2025-06-27] MEDS: LEXAPRO 10 MG PO (08:09)
[2025-06-27] MEDS: PLAVIX 75 MG PO (08:09)
[2025-06-27] MEDS: FEOSOL 325 MG PO (08:10)
[2025-06-27] MEDS: ZETIA 10 MG PO (08:10)
[2025-06-27] MEDS: TOPROL XL 25 MG PO (08:10)
[2025-06-27] MEDS: ELIQUIS 5 MG PO ×2 (08:10→20:34)
[2025-06-27] MEDS: LASIX 40 MG IV ×2 (08:10→17:15)
[2025-06-27] MEDS: COZAAR 100 MG PO (08:10)
[2025-06-27] MEDS: DESENEX/MITRAZOL/ZEASORB 1 APPLIC TOPICAL ×2 (08:10→20:34)
[2025-06-27 08:49] LABS: Blood Urea Nitrogen 21 mg/dl (9-20); Calcium 9.9 mg/dl (8.4-10.2); Carbon Dioxide 27 mmol/L (22-30); Chloride 107 mmol/L (98-107); Estimated Creatinine Clearance 100 ml/min; Glucose 91 mg/dl (70-99); Potassium 3.9 mmol/L (3.5-5.1); Sodium 137 mmol/L (135-145); eGFR > 60.00
--- NOTE | 2025-06-27 09:31 | W.PN.CD ---
Today's Communication / Plan
-
Stop Plavix
May progress to R/L cath
CHRIS vs diuresis and reevaluate MR
Impression / Plan
-
HFpEF, acute,
- Hx of heart failure is unclear => I spoke with Dr. Hand and he will review his records
- Severe MR and TR with severe pulmonary HTN note
- Dr. Hand will review records => heart failure is newer but on problem list. In Mar echo mod MR PASP 62. In May in [facility] with heart failure
- May be best to progress to CHRIS/Cath vs med rx and re-evaluate MR
- Slowly add GDMT for HFpEF
Severe MR/TR
- See comments above
Fall, mechanical
Insomnia, etiology uncertain
Recent subdural => neurosurgery note reviewed
Permanent AFib, on Eliquis, rate fine
HTN, improved, not perfect
Non-ischemic myocardial injury (HTN, HF), peak 0.052
CAD with hx stenting 2020 LAD and RCA, no CP. I spoke with Dr. Hand and given recent subdural after trauma he is OK with stopping Plavix
Anemia, microcytic, MCV 70.7, on anticoagulant, must think of iron deficiency
-monitor and w/u per primary
Subjective:
He does have COLEY. Wonder if poor sleep was related to heart failure
Echo 06/26/2025:
SUMMARY
1. Left ventricular ejection fraction is normal with an ejection fraction of 72 % by Dooley's biplane method of discs. Basal inferior hypokinesis.
2. Right ventricular size and systolic function are within normal limits.
3. Severe biatrial enlargement.
4. Severe, eccentric mitral valve regurgitation with Coanda effect. Systolic flow reversal in the pulmonary veins, which is consistent with severe mitral regurgitation.
5. Severe, eccentric tricuspid regurgitation. Estimated pulmonary artery pressure of 89 mmHg assuming a right atrial pressure of 15 mmHg.
6. There are no prior studies available for comparison.
Physical Exam
Vital Signs/Labs
Vital Signs
Temp Pulse Resp BP Pulse Ox
97.5 F 74 16 133/84 94
06/27/25 07:10 06/27/25 08:10 06/27/25 07:10 06/27/25 08:10 06/27/25 08:00
06/26/25 06/27/25 06/28/25
06:59 06:59 06:59
Actual Weight 109.939 kg 108.891 kg
06/27/25 07:41
06/27/25 07:41
Triglycerides 44 mg/dl (10-149) 06/26/25 04:50
LDL Cholesterol, Calc 34 mg/dl 06/26/25 04:50
VLDL Cholesterol, Calc 8 mg/dl (0-30) 06/26/25 04:50
HDL Cholesterol 34 mg/dl 06/26/25 04:50
06/25/25 06/27/25
21:07 06:00
Fqa-R-Pmkdjwvkgfr Pept 1970 Cancelled
LAB Results
06/25/25 06/26/25 06/26/25
21:07 00:17 04:50
Troponin I 0.045 H* 0.052 H* 0.051 H*
06/26/25 06/26/25
04:50 10:05
Troponin I Cancelled Cancelled
Physical Exam
Constitutional: No acute distress
Cardiovascular: Rhythm/rate is irregular and Systolic murmur present
Respiratory: Respiratory effort normal, Lungs clear to auscul. and Crackles Present
GI: Soft and Distention absent
Neuro/Psych: AO x 3
Data Reviewed
-
Date of Service: June 27, 2025
--- NOTE | 2025-06-27 13:29 | PN.CDI ---
CDI
- -
CDI:
Physician Documentation Request
Admit Date: 06/26/25 14:07
Dear Doctor Oliver,
Patient presented to ED after fall.
Patient noted to have atrial fibrillation.
Hospitalist refers to the atrial fibrillation as paroxysmal.
Cardiology as permanent atrial fibrillation
Please clarify the type of atrial fibrillation:
Paroxysmal atrial fibrillation - terminates spontaneously or with intervention within 7 days of onset
Permanent atrial fibrillation - when a decision has been made to accept the presence of AF and there is no further attempt to restore or maintain sinus rhythm
Other - please specify
Use of terms such as suspected, likely, concern for, or probable (associated with a specific diagnosis that is being evaluated, monitored, or treated as if it exists) are acceptable and can be coded in the inpatient setting, when documented at the
time of discharge.
Thank you,
Radha Blunt RN, BSN
CDI Specialist
tiger text
Please use your independent medical judgment in providing your response.
--- NOTE | 2025-06-27 15:37 | CM ---
Addendum entered by Carol Ross 06/27/25 18:05:
This pt has reached his maximum out of pocket copay of $2000, therefore all three of these medications have a $0 copay until the insurance resets in August. The workaround is to have the patient get a 90-day supply (which will be due in July)
after he completes his first 30 days. This will extend the $0 copay through October after this he will have to pay the retail kelsey, each one of these medications is a few hundred dollars
entresto 24/25 mg bid The brand name is not on formulary, Need to order the generic which is satubitril-valsartan
farxiga 10mg daily
jardiance 10 mg daily
Original Note:
Met with pt chairside. He is very worried about his loss of balance and need to use walker. He wants to know if this is going to resolve.
PT evaluation is ongoing. Pt is now using a walker, this is new. Does not use assistive devices at home.
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
Plan: Home no needs vs with PT services
[2025-06-27] MEDS: LIPITOR 40 MG PO (17:15)
[2025-06-27] MEDS: MELATONIN 3 MG PO (21:43)
[2025-06-27] MEDS: DESYREL 75 MG PO (21:43)
[2025-06-28] VITALS (7 sets, daily range): BP systolic 116–154; BP diastolic 68–86; PULSE 77; BMI 30.7
[2025-06-28 06:19] LABS: Hematocrit 32.9 % (39.0-52.0); Hemoglobin 10.1 g/dL (13.0-18.0); Mean Corp Hgb Conc. 30.7 g/dL (33.0-37.0); Mean Corpuscular Volume 69.7 fL (80.0-94.0); Platelet Count 188 10^3/uL (130-400); Red Cell Dist. Width 19.7 % (11.5-14.5)
[2025-06-28 07:01] LABS: Blood Urea Nitrogen 24 mg/dl (9-20); Calcium 9.8 mg/dl (8.4-10.2); Carbon Dioxide 28 mmol/L (22-30); Chloride 107 mmol/L (98-107); Estimated Creatinine Clearance 100 ml/min; Glucose 87 mg/dl (70-99); Magnesium 2.2 mg/dl (1.6-2.3); Potassium 3.8 mmol/L (3.5-5.1); Sodium 138 mmol/L (135-145); eGFR > 60.00
--- NOTE | 2025-06-28 08:08 | W.PN.HOSP.TC ---
Today's Communication/Plan
-
cont diuresis as per cardio
possible discharge tomorrow if remains stable/cont to improve
Assessment / Plan
Assessment / Plan
Physical Exam
General: No acute distress, appears comfortable at this time.
HEENT: NormoCephalic, Moist mucous membranes, PERRLA
Respiratory: Clear and Non Labored Respirations; No Wheezes, Rales or Rhonchi
Cardiac: Irregular Irregular Rhythm and Murmur; No Rub, Gallop or Peripheral Edema
GI: Soft, Non Tender, Non Distended and Normal Bowel Sounds
Musculoskeletal: No Clubbing, No Cyanosis and No Edema
Skin: Warm
Neuro: AOx3 conversant coherent
Psych: Calm
79M hypertension, hyperlipidemia, coronary artery disease, congestive heart failure, paroxysmal atrial fibrillation and obstructive sleep apnea presented for evaluation fall with associate poor sleep. Pt also has hx fall January 30, 2025 resulting in
brain bleed requiring craniotomy.
#fall 2/2 ambulatory dysfunction vs. arrhythmia vs. syncopal episode
#possible HF exacerbation
fall at home this evening, fallJanuary 30, 2025 with bleed requiring craniotomy, difficulty sleeping recent trazodone ordered and ineffective, weakness from lack of sleep per patient
tot bili 3.[address]: Left frontal parietal convexity extra-axial collection measuring up to 3mm, may represent acute subdural. No significant line shift.
- Admit to telemetry
- Consult Neurosurgery appreciated ok to resume home Eliquis
- repeat head CT noted stable
- orthostatic VS
- Consult PT/OT appreciated HH
-cont home trazodone 75 mg HS, Melatonin 3mg HS added
-ECHO appreciated EF 72%, basal inferior hypokinesis, severe MR, severe Tricuspid regurgitation
#Permanent atrial fibrillation
- continue metoprolol
- Eliquis resumed as above
#coronary artery disease
s/p multiple stents
trop 0.045
denies chest pain
- continue clopidogrel
- continue PRN nitro
- trend troponin
#congestive heart failure
CXR: Cardiomegaly with findings suggesting mild interstitial pulmonary edema with small bilateral pleural effusions.
pBNP 1969
- daily weights
- I & Os
- Consult Cardiology appreciated IV lasix 40 mg BID, Farxiga and Spironolactone added
#essential hypertension
- continue losartan
#hyperlipidemia
- continue atorvastatin and ezetimibe
#iron deficiency anemia
- continue ferrous sulfate
#obstructive sleep apnea
#Bradycardia to 30s overnight improved with nasal cannula supplementation
nocturnal saturation study appreciated no needs
Bradycardia since improved w/o need for further oxygen supplementation
PT/OT appreciated HH vs outpt therapy
Code status: full code
DVT prophylaxis: SCDs
I spent a total of 40 minutes with the patient or on the floor. More than 50% of this time involved counseling and coordination of care.
Anticipated Discharge: Within 24 hours
Subjective/Interval History
-
Date of Service: June 28, 2025
Overall reports feeling well. Slept well overnight. Denies new acute issues at this time.
Objective Data
-
Labs:
Laboratory Results
06/28/25
05:43
WBC 7.2
Hgb 10.1 L
Hct 32.9 L
Plt Count 188
Sodium 138
Potassium 3.8
Chloride 107
Carbon Dioxide 28
BUN 24 H
Creatinine 0.8
Glucose 87
Calcium 9.8
Vital Signs:
Vital Signs
Temp Pulse Resp BP Pulse Ox
98.1 F 64 20 116/78 97
06/28/25 03:55 06/28/25 03:55 06/28/25 03:55 06/28/25 03:55 06/28/25 03:55
I&O
1106/28/25 06/29/25
06:59 06:59 06:59
Intake Total 900 / 900 480 / 480
Output Total 1450 / 1450 600 / 600
Balance -550 / -550 -120 / -120
[2025-06-28] MEDS: COZAAR 100 MG PO (08:38)
[2025-06-28] MEDS: FEOSOL 325 MG PO (08:38)
[2025-06-28] MEDS: LASIX 40 MG IV ×2 (08:38→17:01)
[2025-06-28] MEDS: FARXIGA 10 MG PO (08:38)
[2025-06-28] MEDS: ZETIA 10 MG PO (08:38)
[2025-06-28] MEDS: TOPROL XL 25 MG PO (08:39)
[2025-06-28] MEDS: ELIQUIS 5 MG PO ×2 (08:39→19:53)
[2025-06-28] MEDS: DESENEX/MITRAZOL/ZEASORB 1 APPLIC TOPICAL ×2 (08:39→19:53)
[2025-06-28] MEDS: ALDACTONE 25 MG PO (08:39)
[2025-06-28] MEDS: LEXAPRO 10 MG PO (08:39)
--- NOTE | 2025-06-28 13:01 | W.PN.CD ---
Today's Communication / Plan
-
IV diuresis today PO tomorrow
80 mg PO lasix daily starting tomorrow
Cont other HF meds
F/u with outpt store facility technician unless prefers to see CBC
Impression / Plan
-
HFpEF, acute,
- Hx of heart failure is unclear => I spoke with Dr. Hand and he will review his records
- Severe MR and TR with severe pulmonary HTN note
- Dr. Hand will review records => heart failure is newer but on problem list. In [place] echo mod MR PASP 62. In May in [facility] with heart failure
- Cont IV diuresis today
- PO tomorrow
Severe MR/TR
- f/u with outpt store facility technician
Fall, mechanical
Insomnia, etiology uncertain
Recent subdural => neurosurgery note reviewed
Permanent AFib, on Eliquis, rate fine
HTN, improved, not perfect
Non-ischemic myocardial injury (HTN, HF), peak 0.052
CAD with hx stenting 2019 LAD and RCA, no CP. I spoke with Dr. Hand and given recent subdural after trauma he is OK with stopping Plavix
Anemia, microcytic, MCV 70.7, on anticoagulant, must think of iron deficiency
-monitor and w/u per primary
Subjective:
sleeping improved
Breathing improved
Echo 06/26/2025:
SUMMARY
1. Left ventricular ejection fraction is normal with an ejection fraction of 72 % by Dooley's biplane method of discs. Basal inferior hypokinesis.
2. Right ventricular size and systolic function are within normal limits.
3. Severe biatrial enlargement.
4. Severe, eccentric mitral valve regurgitation with Coanda effect. Systolic flow reversal in the pulmonary veins, which is consistent with severe mitral regurgitation.
5. Severe, eccentric tricuspid regurgitation. Estimated pulmonary artery pressure of 89 mmHg assuming a right atrial pressure of 15 mmHg.
6. There are no prior studies available for comparison.
Physical Exam
Vital Signs/Labs
Vital Signs
Temp Pulse Resp BP Pulse Ox
97.8 F 68 16 128/81 97
06/28/25 11:30 06/28/25 11:30 06/28/25 11:30 06/28/25 11:30 06/28/25 11:30
06/27/25 06/28/25 06/29/25
06:59 06:59 06:59
Actual Weight 240 lb 1 oz 239 lb
06/28/25 05:43
06/28/25 05:43
Magnesium 2.2 mg/dl (1.6-2.3) 06/28/25 05:43
Triglycerides 44 mg/dl (10-149) 06/26/25 04:50
LDL Cholesterol, Calc 34 mg/dl 06/26/25 04:50
VLDL Cholesterol, Calc 8 mg/dl (0-30) 06/26/25 04:50
HDL Cholesterol 34 mg/dl 06/26/25 04:50
06/25/25 06/27/25
21:07 06:00
Anw-R-Lnraldgniiv Pept 1970 Cancelled
LAB Results
06/25/25 06/26/25 06/26/25
21:07 00:17 04:50
Troponin I 0.045 H* 0.052 H* 0.051 H*
06/26/25 06/26/25
04:50 10:05
Troponin I Cancelled Cancelled
Physical Exam
Constitutional: No acute distress and Comfortable
EENT: Anicteric
Cardiovascular: Rhythm/rate is irregular
Respiratory: Respiratory effort normal and Lungs clear to auscul.
GI: Soft
Neuro/Psych: AO x 3
Data Reviewed
-
Date of Service: June 28, 2025
EKG: Tracing Personally Visualized and interpreted (af)
Echo: Report Reviewed by me
Labs: Labs Reviewed by me
[2025-06-28] MEDS: LIPITOR 40 MG PO (17:01)
[2025-06-28] MEDS: COLACE 100 MG PO (19:53)
[2025-06-28] MEDS: DESYREL 75 MG PO (22:14)
[2025-06-29 03:00] VITALS: BP 121/83; BP 133/91; BP 155/86; PULSE 76; PULSE 77; PULSE 94
[2025-06-29] MEDS: MELATONIN 3 MG PO (04:25)
[2025-06-29 06:00] VITALS: BMI 30.4
[2025-06-29 07:44] LABS: Hematocrit 34.4 % (39.0-52.0); Hemoglobin 10.4 g/dL (13.0-18.0); Mean Corp Hgb Conc. 30.2 g/dL (33.0-37.0); Mean Corpuscular Volume 72.0 fL (80.0-94.0); Platelet Count 208 10^3/uL (130-400); Red Cell Dist. Width 19.5 % (11.5-14.5)
[2025-06-29 07:58] VITALS: BP 144/76
--- NOTE | 2025-06-29 08:09 | W.PN.HOSP.TC ---
Today's Communication/Plan
-
disharge
Assessment / Plan
Assessment / Plan
Physical Exam
General: No acute distress, appears comfortable at this time.
HEENT: NormoCephalic, Moist mucous membranes, PERRLA
Respiratory: Clear and Non Labored Respirations; No Wheezes, Rales or Rhonchi
Cardiac: Irregular Irregular Rhythm and Murmur; No Rub, Gallop or Peripheral Edema
GI: Soft, Non Tender, Non Distended and Normal Bowel Sounds
Musculoskeletal: No Clubbing, No Cyanosis and No Edema
Skin: Warm
Neuro: AOx3 conversant coherent
Psych: Calm
79M hypertension, hyperlipidemia, coronary artery disease, congestive heart failure, paroxysmal atrial fibrillation and obstructive sleep apnea presented for evaluation fall with associate poor sleep. Pt also has hx fall January 30, 2025 resulting in
brain bleed requiring craniotomy.
#fall 2/2 ambulatory dysfunction vs. arrhythmia vs. syncopal episode
#possible HF exacerbation
fall at home this evening, fallJanuary 30, 2025 with bleed requiring craniotomy, difficulty sleeping recent trazodone ordered and ineffective, weakness from lack of sleep per patient
tot bili 3.[address]: Left frontal parietal convexity extra-axial collection measuring up to 3mm, may represent acute subdural. No significant line shift.
- Admit to telemetry
- Consult Neurosurgery appreciated ok to resume home Eliquis
- repeat head CT noted stable
- orthostatic VS
- Consult PT/OT appreciated HH
-cont home trazodone 75 mg HS, Melatonin 3mg HSPRN added
-ECHO appreciated EF 72%, basal inferior hypokinesis, severe MR, severe Tricuspid regurgitation
#Permanent atrial fibrillation
- continue metoprolol
- Eliquis resumed as above
#coronary artery disease
s/p multiple stents
denies chest pain
- continue PRN nitro
- Troponin trended to peak 0.052 likely non-ischemic myocardial injury
- cont Eliquis, Plavix discontinued as per Cardio d/t hx subdural hematoma
#congestive heart failure
CXR: Cardiomegaly with findings suggesting mild interstitial pulmonary edema with small bilateral pleural effusions.
pBNP 1969
- daily weights
- I & Os
- Consult Cardiology appreciated IV lasix 40 mg BID transitioned to PO 80 mg daily on discharge, Farxiga and Spironolactone added
#essential hypertension
- continue losartan
#hyperlipidemia
- continue atorvastatin and ezetimibe
#iron deficiency anemia
- continue ferrous sulfate
#obstructive sleep apnea
#Bradycardia to 30s overnight improved with nasal cannula supplementation
nocturnal saturation study appreciated no needs
Bradycardia since improved w/o need for further oxygen supplementation
PT/OT appreciated HH vs outpt therapy
Code status: full code
DVT prophylaxis: SCDs
Medically stable for discharge home with home services and outpatient follow up recommendations
Total Time Preparing Discharge __40 minutes including examination of the patient, summary of the hospital stay, instructions for continuing care to all relevant caregivers; and preparation of discharge records, prescriptions, and referral
forms if necessary.
Anticipated Discharge: Today
Subjective/Interval History
-
Date of Service: June 29, 2025
Seen and examined at bedside in no acute distress, sitting up comfortably in chair. Overall reports feeling well. Denies new acute issues. Looking forward to going home.
Objective Data
-
Labs:
Laboratory Results
06/29/25
06:58
WBC 8.0
Hgb 10.4 L
Hct 34.4 L
Plt Count 208
Sodium Pending
Potassium Pending
Chloride Pending
Carbon Dioxide Pending
BUN Pending
Creatinine Pending
Glucose Pending
Calcium Pending
Vital Signs:
Vital Signs
Temp Pulse Resp BP Pulse Ox
97.5 F 70 18 144/76 96
06/29/25 07:58 06/29/25 07:58 06/29/25 07:58 06/29/25 07:58 06/29/25 07:58
I&O
06/28/25 06/29/25 06/30/25
06:59 06:59 06:59
Intake Total 480 / 480
Output Total 600 / 600 985 / 985 200 / 200
Balance -120 / -120 -985 / -985 -200 / -200
[2025-06-29 08:14] LABS: Blood Urea Nitrogen 25 mg/dl (9-20); Calcium 10.0 mg/dl (8.4-10.2); Carbon Dioxide 30 mmol/L (22-30); Chloride 106 mmol/L (98-107); Estimated Creatinine Clearance 88 ml/min; Glucose 83 mg/dl (70-99); Magnesium 2.3 mg/dl (1.6-2.3); Potassium 3.9 mmol/L (3.5-5.1); Sodium 138 mmol/L (135-145); eGFR > 60.00
[2025-06-29] MEDS: LASIX 80 MG PO (09:46)
[2025-06-29] MEDS: ALDACTONE 25 MG PO (09:46)
[2025-06-29] MEDS: COLACE 100 MG PO (09:46)
[2025-06-29] MEDS: COZAAR 100 MG PO (09:46)
[2025-06-29] MEDS: FEOSOL 325 MG PO (09:46)
[2025-06-29] MEDS: FARXIGA 10 MG PO (09:46)
[2025-06-29] MEDS: ELIQUIS 5 MG PO (09:46)
[2025-06-29] MEDS: LEXAPRO 10 MG PO (09:46)
[2025-06-29] MEDS: TOPROL XL 25 MG PO (09:47)
[2025-06-29] MEDS: DESENEX/MITRAZOL/ZEASORB 1 APPLIC TOPICAL (09:47)
[2025-06-29] MEDS: ZETIA 10 MG PO (09:47)
[2025-06-29 11:12] VITALS: BP 134/79
[2025-06-29 13:06] LABS: Iron 39 ug/dl (49-181)
--- NOTE | 2025-06-29 13:08 | CM ---
Patient will discharge home today per hospitalist
Met w/ patient bedside, aware of discharge
PT- OP vs home PT. Discussed w/ patient, prefers home PT initially. Patient stated he's worked w/ [facility] in the past, agreeable to work w/ them again. Referral completed in [facility]
IMM verbally reviewed, copy provided, copy on chart
Son will transport patient home
[facility]

Plan: Home w/ [facility]
[2025-06-29 13:16] LABS: Total Iron Binding Capacity 427 ug/dl (261-462)
[2025-06-29 13:42] LABS: Ferritin 31.1 ng/ml (17.9-464.0)
[2025-06-29 14:13] LABS: Folate 8.5 ng/ml (2.76-20); Vitamin B12 721 pg/ml (239-931)
--- NOTE | 2025-06-29 14:45 | W.DCSUMMARY ---
Discharge Summary
Discharge Data
Date of Admission: 06/26/25
Date of Discharge: 06/29/25
-
Pending Results: No
Discharge Plan
-
Patient Disposition: Home with Home Care
Discharge Diagnosis/Procedures: Acute on Chronic Heart Failure with preserved Ejection Fraction
Severe Mitral Regurgitation
Severe Tricuspid Regurgitation
Obstructive Sleep Apnea
Poor sleep likely exacerbated by Heart Failure as above
History Subdural Hematoma
Condition: Fair
Diet: Low Cholesterol, 2 Gram Sodium and Restrict fluids to 48 oz
Activity: As tolerated
Driving Restrictions: As prior to admission
Bathing Restrictions: None
Blood Work: Repeat CBC and BMP with primary care provider or Cardiology in 1 week of discharge.
Other Services: PT and OT
Specialty Instructions: Weigh Daily- Call MD for wt gain/loss 3 lbs overnight/5 lbs in 1 week
Activity Restrictions/Additional Instructions:
Follow up with primary care provider and Cardiology in 1 week of discharge.
Plavix discontinued due to subdural hematoma.
Lasix switched to 80 mg daily for better treatment heart failure.
Farxiga and Spironolactone also prescribed for treatment Heart Failure
Melatonin prescribed as needed for sleep. This is available over the counter.
Please take medications as prescribed/recommended and follow up with primary care provider, Cardiology, and/or other healthcare provider involved in your care for refills and/or further adjustment to your medication regimen as necessary.
Referrals:
Francisco J Bay MD [Active, Cardiology]
Kwabean Hand MD [Non-Admitting Privileges, Cardiology] - in one to two weeks
Sonido Gooden MD [Family Provider, Family Practice] - in one week
Prescriptions:
New
spironolactone 25 mg Tablet
25 mg PO DAILY Qty: 30 0RF
dapagliflozin propanediol 10 mg Tablet
10 mg PO DAILY Qty: 30 0RF
furosemide 80 mg Tablet
80 mg PO DAILY Qty: 30 0RF
melatonin 3 mg tablet
3 mg PO HS PRN (Reason: Sleep) Qty: 14 0RF
Continued
losartan 50 MG tablet
100 mg PO DAILY
atorvastatin 40 MG tablet
40 mg PO QPM
metoprolol succinate [Toprol XL] 25 MG tablet extended release 24 hr
25 mg PO DAILY
escitalopram oxalate 10 MG tablet
10 mg PO DAILY
omega-3 acid ethyl esters 1 GM capsule
2 tablets PO BID
nitroglycerin 0.4 MG tablet, sublingual
0.4 mg sublingual [id number] PRN (Reason: chest pain)
Eliquis 5 MG tablet
5 mg PO BID Qty: 60 1RF
trazodone 50 mg Tablet
75 mg PO HS
ferrous sulfate 325 mg (65 mg iron) Tablet
325 mg PO DAILY
ezetimibe 10 mg Tablet
10 mg PO DAILY
Discontinued
clopidogrel 75 MG tablet
75 mg PO DAILY Qty: 90 3RF
furosemide [Lasix] 40 mg Tablet
40 mg BID
Discharge Orders:
Discharge Patient (As Directed); Ordered 06/29/25
Ordered By: Laura Boyd
Discharge Date and Time
Print Language: GREENLANDIC
[2025-06-29 16:09] VITALS: BP 141/66
--- NOTE | 2025-06-29 16:46 | PTCARENOTE ---
IV discontinued. Discharge paperwork printed and reviewed with patient who verbalized understanding. Pt transported off the floor via wheelchair by PCT with all belongings from the room.
== END 2025-06-29 16:25 | disposition home health service (06) | DRG 291 ==
LOC: 4 EAST ACU 14:07
PROVIDERS: Nurse Practitioner; Nurse Practitioner Family; ADMITTING PHYSICIAN Internal Medicine; ATTENDING PHYSICIAN Internal Medicine; EMERGENCY PHYSICIAN Student in an Organized Health Care Education/Training Program; FAMILY PHYSICIAN Family Medicine; OTHER PHYSICIAN Internal Medicine Cardiovascular Disease
DX: I11.0 Hypertensive heart disease with heart failure (principal); I50.33 Acute on chronic diastolic (congestive) heart failure; I48.21 Permanent atrial fibrillation; I5A Non-ischemic myocardial injury (non-traumatic); E11.9 Type 2 diabetes mellitus without complications; E78.00 Pure hypercholesterolemia, unspecified; G47.00 Insomnia, unspecified; G47.33 Obstructive sleep apnea (adult) (pediatric); F41.9 Anxiety disorder, unspecified; D50.9 Iron deficiency anemia, unspecified; R29.6 Repeated falls; I08.1 Rheumatic disorders of both mitral and tricuspid valves; I25.10 Atherosclerotic heart disease of native coronary artery without angina pectoris; W10.8XXA Fall (on) (from) other stairs and steps, initial encounter; Y93.01 Activity, walking, marching and hiking; Y92.008 Other place in unspecified non-institutional (private) residence as the place of occurrence of the external cause; Z79.02 Long term (current) use of antithrombotics/antiplatelets; Z79.01 Long term (current) use of anticoagulants; Z91.81 History of falling; Z87.820 Personal history of traumatic brain injury; Z82.49 Family history of ischemic heart disease and other diseases of the circulatory system; Z98.61 Coronary angioplasty status; Z79.899 Other long term (current) drug therapy
CPT/HCPCS: 70450; 70486; 71046; 80048; 80053; 80061; 82607; 82728; 82746; 83036; 83540; 83550; 83735; 83880; 84100; 84484; 85025; 85027; 93005; 93306; 94762; 97116; 97162; 97166; 97530; 99285